=== PATIENT | male | born 1960 | race Caucasian/White ===

== ENCOUNTER 2020-05-29 05:57 | Day surgery (SDC) | payer BC ==
--- NOTE | 2020-05-27 14:14 | RAD ---
EXAM DESCRIPTION: Chest,2 Views CLINICAL HISTORY: 59 years Male, preop surgery hernia repair COMPARISON: 01/15/2016 TECHNIQUE: 2 view radiograph of the chest. IMPRESSION: Normal size cardiac silhouette. Right basal atelectasis or scarring. No pleural effusion or pneumothorax. Thoracic spondylosis. Electronically signed by: Venkata Issa MD 05/27/2020 2:12 PM MANAGER OF ADMINISTRATION
[2020-05-29] MEDS ORDERED: LIDOCAINE 1% 10 ML VIAL INJ ONE (05:58)
[2020-05-29] MEDS ORDERED: MAGNESIUM SULFATE INJ 1 GM/2 ML VIAL IVPB ONE (05:58)
[2020-05-29] MEDS ORDERED: PROPOFOL 200 MG/20 ML VIAL IV ONE (05:58)
[2020-05-29] MEDS ORDERED: DEXAMETHASONE INJ 10 MG/ML VIAL IV ONE (05:58)
[2020-05-29] MEDS ORDERED: SODIUM CHLORIDE 0.9% 50 ML VIAL INJ ONE (05:58)
[2020-05-29] MEDS ORDERED: ceFAZolin SODIUM 1 GM VIAL IVPB ONE (05:58)
[2020-05-29] MEDS ORDERED: LACTATED RINGERS 1,000 ML ONE (06:39)
[2020-05-29] MEDS ORDERED: BUPIVACAINE 0.5% W/EPI 30 ML VIAL INJ ONE ×2 (08:52→11:22)
[2020-05-29] MEDS ORDERED: KETAMINE HCL 100 MG/ML VIAL ONE (11:15)
[2020-05-29] MEDS ORDERED: DEXMEDETOMIDINE HCL 200 MCG/2 ML INJ IV ONE (11:15)
[2020-05-29] MEDS ORDERED: fentaNYL CITRATE INJ 50 MCG/ML 2 ML AMP ONE (11:16)
[2020-05-29] MEDS ORDERED: MIDAZOLAM INJ 2 MG/2 ML VIAL ONE (11:16)
[2020-05-29] MEDS ORDERED: FAMOTIDINE INJ 10 MG/ML VIAL IV ONE (11:16)
[2020-05-29] MEDS ORDERED: HYDROcodone 5MG/APAP 325MG 1 EA TAB ONE (13:13)
--- NOTE | 2020-05-29 13:21 | OP ---
DATE OF PROCEDURE: 05/29/20 PREOPERATIVE DIAGNOSIS: 1. Incarcerated umbilical hernia. 2. Internal and external hemorrhoids. POSTOPERATIVE DIAGNOSIS: 1. Incarcerated umbilical hernia. 2. Internal and external hemorrhoids. PROCEDURE: 1. Repair of incarcerated umbilical hernia with mesh. 2. Complete excision of internal and external hemorrhoids x2. 3. Excision of external anal tag. 4. Bilateral pudendal nerve blocks for postoperative pain control. SURGEON: Randy Cheek MD. ANESTHESIA: General, Juvenal Manzo CRNA, and local. FINDINGS: He had a moderately large amount of incarcerated omentum down to a relatively small hernia defect, less than 3 cm. His hemorrhoids were more extensive than anticipated. He had a very large complex in the right anterior and left anterior as well as a posterior midline tag. COMPLICATIONS: None. ESTIMATED BLOOD LOSS: Minimal. SPECIMEN: None. PLAN: Discharge. INDICATION: As stated. PROCEDURE: General anesthesia was induced. He was prepped and draped in sterile fashion. 0.5% Marcaine with epinephrine was used at the incision site. He was put in stirrups and both areas were prepped, but we did the belly first. An infraumbilical incision was made. Subcutaneous tissues were taken down. As we entered the hernia sac, there was a relatively large amount of omentum, probably the size of a peach. I could feel down and there was a very small hole, so we used the handheld buoyant vessel sealer to ligate across the base of this omentum. When we got down to the defect, we were able to reduce the area left at the fascial level and a finger sweep revealed no evidence of internal abdominal hernias. A 2.[address] was then placed without difficulty, confirming it was flat on the abdominal wall. We then closed the defect with interrupted 0 PDS pop-offs, trimming the tail, catching the 3 center pieces on the tail. The tail was then trimmed and buried as we closed the fascia. The umbilicus was tacked down with 3-0 Vicryl. The wound was closed in separate two layers with absorbable suture and dressing applied. We then elevated his legs and on anorectal exam, he had 2 protruding internal and external hemorrhoids and upon manipulation, in particular the right anterior would prolapse completely with a large internal component. This was grasped with a peon. Local anesthesia was placed. Bilateral pudendal nerve blocks were performed with 3 cc of 0.5% Marcaine with epinephrine on both sides. The LigaSure/vessel sealer device was then used to excise this hemorrhoid completely while avoiding the muscle and that was handed off. The left anterior had a similar one although not as big. It was elevated and completely excised. In the external skin, we used the cautery on cuts. This cut level. Each one was removed with no bleeding. There was still some residual hemorrhoid tissue in the lateral positions, but we were careful to limit how much we excised to avoid stricturing. Another internal hemorrhoid was just simply ligated off as well on the right lateral position. A posterior tag which was significant was ligated as well after injecting local anesthesia. Once this was complete, more local anesthesia was placed. Exam revealed that the muscle was not included in our excision although we had confirmed that previously. No other significant problematic hemorrhoids remained although he did have extensive disease. He tolerated the procedure. Dressings were applied. He was awakened and taken to Recovery to be discharged. #[id number] cc: Radha Andrade MD [facility]
[2020-05-29 13:58] VITALS: BP 135/76; TEMP 98.9; O2SAT 97
== END 2020-05-29 14:05 | disposition home or self-care (01) ==
LOC: AMB 05:57
PROVIDERS: ATTEND Surgery
DX: K42.0 Umbilical hernia with obstruction, without gangrene (principal); K64.8 Other hemorrhoids; K64.4 Residual hemorrhoidal skin tags; G89.18 Other acute postprocedural pain; I10 Essential (primary) hypertension; Z87.19 Personal history of other diseases of the digestive system; Z79.899 Other long term (current) drug therapy
CPT/HCPCS: 00830; 36415; 36416; 46260; 49587; 64450; 71046; 80048; 82948; 85025; 93005; A4216; J0690; J1100; J2250; J3010; J3475; J3490; J7120